=== PATIENT | male | born 1960 | race Caucasian/White ===

== ENCOUNTER 2021-03-02 09:47 | Day surgery (SDC) | payer BC ==
[~2021-03-02] VITALS: Ht 182.9 cm; Wt 104.5 kg
[~2021-03-02 09:47] MED LIST: ATOR40TA PO; Adderall Xr 2020 MG PO; BUPR100 PO; CARV25 PT; DARIFENACIN ER15 MG PO; ENTRESTO 49 MG1 EACH PO; FARXIGA10 MG PO; FERROUS GLUCON324 M7 PO; FURO40; GABA300 PO; LISI20 PO; METF500 PO; METO25ER PO; OMEP40CA12 PO; POTA10T PO; PREG25 PO
--- NOTE | 2021-03-02 15:33 | NUR ---
DR NEAL IN TO SEE PT/SIG OTHER TO DISCUSS PLAN OF CARE, PT DRESSED, IV DC'D INTACT, PT DC'D BY WC BY TOMY JO, WITH SIGOTHER DRIVING PT HOME
== END 2021-03-02 15:40 | disposition home or self-care (01) ==
LOC: MHTC 09:47
DX: I70.213 Atherosclerosis of native arteries of extremities with intermittent claudication, bilateral legs (principal); I11.0 Hypertensive heart disease with heart failure; I50.9 Heart failure, unspecified; E11.9 Type 2 diabetes mellitus without complications; I25.2 Old myocardial infarction; Z20.822 Contact with and (suspected) exposure to COVID-19
CPT/HCPCS: 99152; 99153; C1760; C1769; C1887; C1894; J1644; J2060; J2250; J3010; J7030; J7050; Q9967

== ENCOUNTER 2021-03-06 23:59 | Emergency (ER) | payer BC ==
[~2021-03-06] VITALS: Ht 182.9 cm; Wt 104.3 kg
[2021-03-07 00:37] LABS: BASOPHILS ABSOLUTE AUTO 0.07 K/mm3 (0.00-0.23); BASOPHILS PERCENT AUTO 1 % (0-2); EOSINOPHILS PERCENT AUTO 2 % (0-6); Hematocrit 40.5 % (37.0-53.0); Hemoglobin 12.3 g/dL (13.5-17.5); IMMATURE GRAN ABSOLUTE AUTO 0.02 K/mm3 (0.00-0.10); IMMATURE GRAN PERCENT AUTO 0 % (0-1); LYMPHOCYTES ABSOLUTE AUTO 2.21 K/mm3 (0.84-5.20); LYMPHOCYTES PERCENT AUTO 22 % (21-46); MONOCYTES ABSOLUTE AUTO 0.76 K/mm3 (0.16-1.47); MONOCYTES PERCENT AUTO 8 % (4-13); Mean Corpuscular HGB Conc 30.4 g/dL (31.5-36.5); Mean Corpuscular Volume 76 fL (80-100); Mean Platelet Volume 10.3 fL (9.1-12.4); NEUTROPHILS PERCENT AUTO 68 % (41-73); Platelet Count 283 K/mm3 (150-400); RDW Coefficient Variation 16.1 % (11.7-14.2); Red Blood Cell Count 5.34 M/mm3 (4.30-5.90); White Blood Cell Count 10.16 K/mm3 (4.00-11.30)
[2021-03-07 00:57] LABS: Alanine Aminotransfer (ALT/SGP 37 U/L (12-78); Albumin, Blood 4.2 g/dL (3.4-5.0); Albumin/Globulin Ratio 1.2 (0.8-1.8); Alk Phos 110 U/L (50-136); Anion Gap 5 mmol/L (6-16); Aspartate Aminotrans (AST/SGOT 19 U/L (12-37); Bilirubin, Total 0.3 mg/dL (0.1-1.0); Blood Urea Nitrogen 17 mg/dL (8-24); Bun/Creatinine Ratio 19.6 (12.0-20.0); CO2, Blood 29 mmol/L (21-32); Calcium, Blood 9.1 mg/dL (8.5-10.1); Chloride, Blood 105 mmol/L (98-108); Creatinine, Blood 0.87 mg/dL (0.60-1.20); Globulin, Blood 3.5 g/dL (2.2-4.0); Glomerular Filtration Rate >60 (60-); Glucose, Blood 175 mg/dL (70-99); Sodium, Blood 139 mmol/L (136-145); Total Protein, Blood 7.7 g/dL (6.4-8.2); Troponin I <0.015 ng/mL (0.000-0.040)
[2021-03-07] MEDS ORDERED: Norco 10-325 T1 EACH PO (02:06)
[2021-03-07] MEDS ORDERED: Protonix40 MG PO (02:13)
== END 2021-03-07 02:39 | disposition home or self-care (01) ==
LOC: ER 23:59
PROVIDERS: Emergency Medicine
DX: R10.9 Unspecified abdominal pain (principal); Z88.2 Allergy status to sulfonamides; Z88.1 Allergy status to other antibiotic agents; Z79.899 Other long term (current) drug therapy; Z87.891 Personal history of nicotine dependence
CPT/HCPCS: 71046; 80053; 83690; 84484; 85025; 93005; 93010; 96374; 96375; 99285-25; A9270; J2405; J3010

== ENCOUNTER 2021-05-27 10:31 | Emergency (ER) | payer OTHER, BC ==
[~2021-05-27] VITALS: Ht 182.9 cm; Wt 102.1 kg
[~2021-05-27 10:31] MED LIST changes: +Norco 10-325 T1 EACH PO; +Protonix40 MG PO
[2021-05-27] MEDS ORDERED: OXYC5 PO (13:47)
== END 2021-05-27 14:35 | disposition home or self-care (01) ==
LOC: ER 10:31
DX: S70.11XA Contusion of right thigh, initial encounter (principal); Z87.891 Personal history of nicotine dependence; W01.10XA Fall on same level from slipping, tripping and stumbling with subsequent striking against unspecified object, initial encounter
CPT/HCPCS: 36415; 72193; 73502; 93971; 96374; 96375; 96376; 99283-25; J1170; J2405; Q9967